=== PATIENT | female | born 1990 | race Caucasian/White ===

== ENCOUNTER → 2022-06-13 07:10 | Outpatient (CLI) | payer OTHER, SELFPAY ==
[2022-06-13 09:09] LABS: Hematocrit 29.7 % (36-46); Hemoglobin 10.4 g/dL (12.0-16.0); Mean Corpuscular Hemoglobin 31.5 PG (26-34); Platelet Count 184 X10^3/uL (150-400); White Blood Cell Count 7.2 X10^3/uL (4.5-11.0)
[2022-06-13 09:38] LABS: Glucose 1 Hour 182 mg/dL (70-170)
[2022-06-13 09:39] LABS: Glucose Fasting 78 mg/dL (70-100)
[2022-06-13 09:39] LABS: Glucose Tol Interpretation INTERPRETATION
[2022-06-13 10:48] LABS: Glucose 2 Hour 136 mg/dL (70-140)
== END ==
PROVIDERS: Referring Provider Nurse Practitioner Obstetrics & Gynecology; Visit Provider Nurse Practitioner Obstetrics & Gynecology
DX: Z34.90 Encounter for supervision of normal pregnancy, unspecified, unspecified trimester (principal); Z13.1 Encounter for screening for diabetes mellitus; Z3A.24 24 weeks gestation of pregnancy
CPT/HCPCS: 36415; 82951; 82952; 85027

== ENCOUNTER 2022-09-28 21:46 | Inpatient (IN) | payer OTHER, SELFPAY ==
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
[2022-09-28 22:42] VITALS: BP 139/82; PULSE 80; RESP 18
[2022-09-28 22:42] LABS: Add Manual Diff / Slide Review NO; Basophils Absolute Auto 100 /uL (0-100); Basophils Percent Auto 0.6 % (0-2); Eosinophils Absolute Auto 0 /uL (0-450); Eosinophils Percent Auto 0.2 % (2-4); Hematocrit 37.1 % (36-46); Hemoglobin 12.9 g/dL (12.0-16.0); Lymphocytes Absolute Auto 1100 /uL (1100-4500); Lymphocytes Percent Auto 8.7 % (25-40); Mean Corpuscular HGB Conc 34.7 % (30-36); Mean Corpuscular Hemoglobin 31.9 PG (26-34); Mean Corpuscular Volume 91.8 fL (80-100); Monocytes Absolute Auto 500 /uL (0-900); Monocytes Percent Auto 4.4 % (3-14); Neutrophils Absolute Auto 10500 /uL (1500-7000); Neutrophils Percent Auto 86.1 % (50-75); Platelet Count 163 X10^3/uL (150-400); Red Blood Cell Count 4.05 X10^6/uL (4.0-5.2); Red Cell Distribution Width 13.3 % (11.6-14.8); White Blood Cell Count 12.2 X10^3/uL (4.5-11.0)
[2022-09-28 23:08] VITALS: BP 139/83
--- NOTE | 2022-09-29 | PATH_ITS ---
[facility] Accession Number: [id number] No. of containers..01 Tissue . 01 Material submitted: . placenta - PLACENTA . 01 Diagnosis: Walker Placenta: Placenta parenchyma: Fragmented discoid walker placenta, weight 471 grams. Regions of infarction associated by dense fibrin present in an area 12 mm, less than 10% of the apparent cut surface. Chorionic villous maturation is consistent with a mature placenta. Moderate to severe inter- and intravillous fibrin is present. No definite villitis identified. Maternal surface is disrupted and possibly incomplete at gross examination. . Umbilical cord: Attached portion measures 6.2 cm in length. The detached portion measures 44.6 cm in length. Eccentrically inserted, 3.1 cm from the placental disc margin. Three vessel present. Recent hemorrhage present focally, non-specific. No funisitis identified. . Membranes: Marginally inserted. Ruptured 6.9 cm from the placental disc margin. No chorioamnionitis identified. [facility] 10/02/2022 1346 Local . 01 Electronically signed: . Jazmin Mack MD, Pathologist NPI- [id number] . 01 Gross description: . The specimen is received in formalin labeled with the patient's name, , and placenta, and consists of a fragmented, discoid walker placenta with an aggregate weight of 471 grams and measuring 18.5 x 16.3 x 2.5 cm with no accessory lobes identified. . The membranes are beach and translucent with no evidence of thickening or discoloration. They insert at the margin and have a point of rupture 6.9 cm from the nearest placental disc edge. The attached segment of cord measures 6.2 cm in length and averages 1.2 cm in diameter while the detached fragment measures 44.6 cm in length by 1.3 cm in average diameter. The cord has a presumed leftward coil with an index of approximately three twists per 5 cm. The cord inserts eccentrically 3.1 cm from the nearest placental disc edge. Sectioning reveals trivascular architecture with hemorrhagic material occupying approximately 30% of the cut surface. No additional lesions or knots are identified. . The surface is blue-cano with normal arborizing vasculature and a single beach discolored area measuring 1.2 cm in greatest dimension occupying less than 10% of the cut surface. No additional lesions are identified. . The maternal surface is possibly incomplete; however, the detached portion of placenta matches the size of the defect. No areas of discoloration or lesions are identified. Sectioning reveals a red, spongy cut surface with no discoloration or lesions identified. . Coal Drier Operator sections are submitted as follows: A1: Cord to include area of hemorrhage. A2: Membrane roll. A3: Full thickness surface discolorations. A4-A6: Central full thickness most normal sections. ([id number]) /SUSY 09/30/2022 1158 Local . 01 Pathologist provided ICD-10: O43.90 . 01 CPT . 257553 Specimen Comment: A courtesy copy of this report has been sent to [facility] Pathology Performed at: 01 [facility] [address] [place] [address], [place], [place] [id number] MD Jacinto Álvarez MD Phone: [phone]
[2022-09-29] MEDS: KETOROLAC 30 MG/ML VIAL IV (01:41)
[2022-09-29] MEDS: fentaNYL 100 MCG/2 ML INJ IV ×3 (02:12→03:07)
--- NOTE | 2022-09-29 02:44 | PM.OBPRVD ---
Events: Gestational Diabetes (A1) and Other (anterior lip) Labor & Delivery Delivery date: 09/29/22 Intrapartal Events: None Cervical ripening method: none Induction method: none Delivery monitor: external FHT Route of delivery: L&D Laceration Description: Perineal - 1st Degree Quantitative Blood Loss: 1,232 Anesthesia Type: None Complications: Retained placenta with manual removal Narrative: Divina labored well, changing positions often. Was in the tub for about 30 minutes, then sat on the ball, was hands & knees with the CUB, on the toilet, leaning on her , and more. Began feeling the spontaneous urge to push, and had SROM of copious clear fluid. After that, urge to push decreased in initially, then became more gutteral and intense. After about 20 min of pushing, bleeding noted, cervical exam revealed an anterior lip that was successfully held back through 2 contractions while she was reclined leaning left. Shortly thereafter, baby was on the perineum, and then the head delivered and resituted spontaneously to KENDY. With the next contraction, maternal efforts and downward traction successfully released anterior shoulder. NSVB of vigorous baby boy who was stimulated and dried and then given to Divina when she was ready to receive him skin to skin. Placenta did not deliver spontaneously despite maternal effort, traction, and position changes; also, this CNM was unable to feel placenta in cervical os. QBL at this time was 364 mL. On-call OB (Mirella) was called 30 min after of baby, and she recommended giving 100 mcg IV fentanyl to assist with maternal relaxation and to give it more time. OB called again at 60 min post-, and OB headed in to do manual removal, which was successful; See her note for details. Placenta appeared complete via inspection; sent to pathology. Pitocin IV, methergine IM and TXA given for PPH. Amp/Gent given for infection prophylaxis after discussing option with Divina due to poor evidence that it is necessary. Divina relieved to avoid OR for placental removal. Perineum inspected and found to be very edematous with 1st degree perineal laceration hemostatic, midline and straight, so no repair done. Total QBL 1232 mL. Divina got up to take a shower to clean off, then got back in bed to breastfeed her baby again. Divina and Ed are thrilled to meet their son. [place] Baby 1: gender: Male Presentation: vertex Position: Left Occiput Transverse Placenta delivery description: Manual Removal Cord Vessel Description: 3 Vessels score (1 min): 8 score (5 min): 9 weight: 3976 kg Plan for aftercare: Routine care
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
[2022-09-29 03:42] VITALS: BP 116/68
[2022-09-29] MEDS: ACETAMINOPHEN 325 MG TABLET 650 MG PO ×3 (04:01→18:22)
[2022-09-29] MEDS: METHYLERGONOVINE 0.2 MG/ML VIAL IM (04:16)
[2022-09-29] MEDS: OXYTOCIN PREMIX 30 UNIT/500 ML PLAST..BAG 350 UNIT IV (04:39)
[2022-09-29] MEDS: TRANEXAMIC ACID 1,000 MG in SODIUM CHLORIDE 0.9% 100 ML 200 MG IV (04:39)
[2022-09-29] MEDS: AMPICILLIN 1,000 MG in SODIUM CHLORIDE 0.9% 100 ML 200 MG IV (05:25)
[2022-09-29 06:26] LABS: Add Manual Diff / Slide Review NO; Basophils Absolute Auto 0 /uL (0-100); Basophils Percent Auto 0.2 % (0-2); Eosinophils Absolute Auto 0 /uL (0-450); Eosinophils Percent Auto 0.1 % (2-4); Hematocrit 29.8 % (36-46); Hemoglobin 10.6 g/dL (12.0-16.0); Lymphocytes Absolute Auto 800 /uL (1100-4500); Lymphocytes Percent Auto 4.4 % (25-40); Mean Corpuscular HGB Conc 35.5 % (30-36); Mean Corpuscular Hemoglobin 32.1 PG (26-34); Mean Corpuscular Volume 90.4 fL (80-100); Monocytes Absolute Auto 900 /uL (0-900); Monocytes Percent Auto 4.6 % (3-14); Neutrophils Absolute Auto 16800 /uL (1500-7000); Neutrophils Percent Auto 90.7 % (50-75); Platelet Count 142 X10^3/uL (150-400); Red Blood Cell Count 3.29 X10^6/uL (4.0-5.2); Red Cell Distribution Width 13.3 % (11.6-14.8); White Blood Cell Count 18.6 X10^3/uL (4.5-11.0)
[2022-09-29] MEDS: IBUPROFEN 600 MG TABLET PO ×3 (07:10→18:21)
[2022-09-29] MEDS: GENTAMICIN 330 MG in SODIUM CHLORIDE 0.9% 100 ML 108.25 MG IV (08:00)
[2022-09-30] MEDS: ACETAMINOPHEN 325 MG TABLET 650 MG PO ×2 (00:05→06:22)
[2022-09-30] MEDS: IBUPROFEN 600 MG TABLET PO ×2 (00:05→06:22)
--- NOTE | 2022-09-30 10:50 | P.DS_ITS ---
Discharge Providers Provider Date of admission: 09/28/22 21:46 Consults: 09/28/22 22:27 Consult to Anesthesiology Urgent Comment: Consulting Provider: Anesthesiologist Reason for consultation: Epidural Has provider been notified: No 09/30/22 03:42 Consult to Commodities Broker Routine Comment: Discharge provider: Layla Ortega CNM, ARNP Summary Hospital Course Date Patient Seen: 09/30/22 Time Patient Seen: 10:50 Diagnoses: Z39.1 - care of lactating mother NSVB Discharge Diagnosis (1) Retained placenta: Status: Acute Time Spent with Patient Time attestation: Total time spent providing and/or coordinating discharge services: Objective Labs 09/29/22 06:15 Discharge Plan Discharge orders & Medications Prescriptions: No Action (DME) True Metrix Glucose Test Strip Strip MISCELLANEOUS Patient Comments: USE TO test blood glucose 4 times per day 1 mg Tablet 1 tab PO DAILY Visit Report/Discharge Packet Stand Alone Forms: Discharge: Care
--- NOTE | 2022-09-30 10:54 | PM.OBDS.1 ---
Discharge Providers Provider Date of admission: 09/28/22 21:46 Discharge Date: 09/30/22 Consults: 09/28/22 22:27 Consult to Anesthesiology Urgent Comment: Consulting Provider: Anesthesiologist Reason for consultation: Epidural Has provider been notified: No 09/30/22 03:42 Consult to Gold Nib Grinder Routine Comment: Discharge provider: Layla Ortega CNM, ARNP Summary Hospital Course Diagnoses: O80 Hospital Course: Divina arrived in active labor and labored well without augmentation or any medication. Spontaneous pushing assisted with reduction of anterior lip and resulted in NSVB. Retained placenta manually removed with resulting hemorrhage, asymptomatic on discharge. . Peripartum Data Infant Delivery Method: Natural Vaginal Laceration Description: Perineal - 1st Degree complications: retained placenta 1: Gender: Male Disposition of : home Discharge Diagnosis (1) Retained placenta: Start Date: 09/29/22 Status: Acute Problem Details: Manual removal S/p 1 dose of antibiotics (2) (normal spontaneous vaginal delivery): Start Date: 09/29/22 Status: Acute (3) hemorrhage: Start Date: 09/29/22 Status: Acute Status at Discharge Cognitive/behavioral status at discharge: oriented and calm Functional status at discharge: independent ambulation Overall status at discharge: patient is progressing back to baseline Time Spent with Patient Time attestation: Total time spent providing and/or coordinating discharge services: Time spent: Less than 30 minutes Specific discharge activities: discharge teaching Objective Labs 09/29/22 06:15 Exam Vital Signs (past 8 hours): 101/61 93 bpm 13/min 99 F SpO2 100% Other: Fundus firm at U, midline. Lochia minimal Perineum 1st degree with improving/moderate edema Discharge Plan Discharge Plan Patient Disposition: Home Discharge orders & Medications Prescriptions: Continued ivnqtova-zdn-Cl-FA 1 mg Tablet 1 tab PO DAILY No Action (DME) True Metrix Glucose Test Strip Strip MISCELLANEOUS Patient Comments: USE TO test blood glucose 4 times per day Follow up/Referrals: Layla Ortega CNM, [facility] [[facility]] - 2 Weeks (and 6 weeks as scheduled.) Diet/Activity/Treatments Diet: Diet as Tolerated and Regular Activity: Low zavaleta, as discussed Cold/Heat Therapy: as needed Other treatments: Recommend iron BID x 6 weeks Skin/Wound/Dressing Care Report to your healthcare provider any signs of infection, such as:: chills, fever, unusual drainage and unusual redness Visit Report/Discharge Packet Stand Alone Forms: Discharge: Care, Patient Portal/API
[2022-09-30 12:43] VITALS: BP 101/61; PULSE 93; RESP 18; TEMP 37.2
== END 2022-09-30 12:00 | disposition home or self-care (01) | DRG 806 ==
PROVIDERS: Admitting Provider Advanced Practice Midwife; Referring Provider Advanced Practice Midwife; Visit Provider Advanced Practice Midwife
DX: O24.429 Gestational diabetes mellitus in childbirth, unspecified control (principal); O72.2 Delayed and secondary postpartum hemorrhage; Z37.0 Single live birth; Z3A.39 39 weeks gestation of pregnancy; O99.02 Anemia complicating childbirth
CPT/HCPCS: 36415; 59050; 76815; 85025; 86850; 86900; 86901; G0379; J0290; J1885; J2210; J2590; J3010